=== PATIENT | female | born 1995 | race Caucasian/White ===

== ENCOUNTER 2019-11-14 16:19 | Emergency (ER) | payer OTHER, SELFPAY ==
--- NOTE | ~2019-11-14 | CT_ITS ---
EXAMINATION: CT abdomen pelvis w con EXAM DATE: 11/14/2019 17:05 INDICATION: Right lower quadrant pain. TECHNIQUE: Spiral CT of the abdomen and pelvis was performed following intravenous injection of 100 m L Omnipaque 350. Axial, coronal and sagittal images were reviewed. The dose-length product (DLP) fo r this examination was 400.40 mGy-cm. The exposure was tailored according to patient size (auto mA e xposure control), and iterative reconstruction (ASIR) was used as additional dose reduction technique . There is no prior study for comparison. FINDINGS: The liver, spleen, adrenal glands and pancreas are unremarkable. Gallbladder is unremarkab le. No biliary obstruction. Portal and splenic veins are patent. Kidneys enhance symmetrically. T here is no hydronephrosis. The uterus and ovaries are unremarkable, no adnexal mass. Small amount o f mildly proteinaceous free pelvic fluid, probably sequela from a recently ruptured right ovarian hem orrhagic cyst. The bladder is unremarkable. There is no retroperitoneal or pelvic lymphadenopathy. The appendix is normal. The stomach and small bowel are unremarkable. There is expected amount of c olonic stool. No free intraperitoneal gas. The heart is normal in size. There are no pericardial or pleural effusions. The lung bases are unremarkable. The bones are unremarkable. IMPRESSION: 1. Probable recently ruptured right ovarian hemorrhagic cyst. 2. Normal appendix. Reviewed, dictated and finalized at location A.
[2019-11-14 16:29] VITALS: BP 137/99; PULSE 102; RESP 18; TEMP 37.1; O2SAT 100
--- NOTE | 2019-11-14 16:35 | ED.ABDPAIN ---
HPI - Abdominal Pain General Chief Complaint: Abdominal Pain <Mahin Benavides PA-C - Last Filed: 11/14/19 17:39> Stated Complaint: abd pain <Mahin Benavides PA-C - Last Filed: 11/14/19 17:39> Time Seen by Provider: 11/14/19 16:25 <Mahin Benavides PA-C - Last Filed: 11/14/19 17:39> Source: patient <Mahin Benavides PA-C - Last Filed: 11/14/19 17:39> Mode of arrival: ambulatory <GRIS Patel Last Filed: 11/14/19 17:39> Limitations: no limitations <GRIS Patel Last Filed: 11/14/19 17:39> History of Present Illness HPI narrative: Patient is a 24-year-old female who presents to emergency department for evaluation of right lower quadrant abdominal pain for the last 5 hours does not radiate nothing is made it better or worse took ibuprofen with no improvement went to urgent care referred to emergency department patient denies any vomiting vaginal discharge or urinary symptoms has had some loose stools and nausea associated with her pain denies similar occurrence in the past presents in no distress <Mahin Benavides PA-C - Last Filed: 11/14/19 17:39> Related Data Allergies/Adverse Reactions: Allergies Allergy/AdvReac Type Severity Reaction Status Date / Time No Known Allergies Allergy Verified 11/14/19 16:51 <Mahin Benavides PA-C - Last Filed: 11/14/19 17:39> Review of Systems Review of Systems: All systems reviewed & are unremarkable except as noted in HPI and below <Mahin Benavides PA-C - Last Filed: 11/14/19 17:39> PMFSH Surgical History Surgical History: Surgical History (Updated 11/14/19 @ 16:36 by Mahin Benavides PA-C) H/O exploratory laparotomy <GRIS Patel Last Filed: 11/14/19 17:39> Exam Narrative: Exam Narrative: GENERAL: Well-appearing, well-nourished, and in no acute distress. HEAD: Normocephalic, atraumatic. EYES: PERRLA and EOMI. ENT: Nares clear, no rhinorrhea or epistaxis. Mucous membranes moist. CHEST: Clear to auscultation. No respiratory distress. No wheezes rales or rhonchi HEART: Regular rate and rhythm. No murmur heard. Normal peripheral pulses. ABDOMEN: Soft, tenderness of the right lower quadrant no rebound or guarding, nondistended EXTREMITIES: Normal range of motion. No edema. SKIN: Warm, dry, no rash. NEURO: No focal deficits. Alert and oriented x3. Cranial nerves II through XII grossly intact PSYCH: Normal mood and affect. <Mahin Benavides PA-C - Last Filed: 11/14/19 17:39> Course Course Emergency Course: Patient in the room in no distress aware of case findings treatment plan and diagnosis agreeing to follow-up as directed or to return if symptoms worsen or concerns <GRIS Patel Last Filed: 11/14/19 17:39> Vital Signs Vital signs: Vital Signs Temperature 98.8 F 11/14/19 16:29 Pulse Rate 102 H 11/14/19 16:29 Respiratory Rate 18 11/14/19 16:29 Blood Pressure 137/99 H 11/14/19 16:29 Pulse Oximetry 100 11/14/19 16:29 Temperature 98.8 F 11/14/19 16:29 Pulse Rate 102 H 11/14/19 16:29 Respiratory Rate 18 11/14/19 16:29 Blood Pressure 137/99 H 11/14/19 16:29 Pulse Oximetry 100 11/14/19 16:29 <Mahin Benavides PA-C - Last Filed: 11/14/19 17:39> Vital Signs Temperature 98.8 F 11/14/19 16:29 Pulse Rate 102 H 11/14/19 16:29 Respiratory Rate 18 11/14/19 16:29 Blood Pressure 137/99 H 11/14/19 16:29 Pulse Oximetry 100 11/14/19 16:29 Temperature 98.8 F 11/14/19 16:29 Pulse Rate 102 H 11/14/19 16:29 Respiratory Rate 18 11/14/19 16:29 Blood Pressure 137/99 H 11/14/19 16:29 Pulse Oximetry 100 11/14/19 16:29 <Cheryl Izquierdo MD - Last Filed: 11/14/19 18:01> MDM - Abdominal Pain MDM Narrative Medical decision making narrative: Patient in the room in no distress was hydrated in the emergency department afebrile nontoxic-appearing found to have ovarian cyst is the etiology of her
[2019-11-14 16:42] LABS: Basophils Percent Auto 0.2 % (0.2-1.2); Eosinophils Percent Auto 0.3 % (0-4.4); Hematocrit 39.7 % (37.0-47.0); Hemoglobin 13.6 g/dL (12.0-15.0); Immature Granulocyte Absolute 0.04 K/mm3 (0.00-0.031); Immature Granulocyte Percent A 0.3 % (0-0.5); Lymphocytes Absolute Auto 2.51 K/mm3 (0.9-3.2); Lymphocytes Percent Auto 19.2 % (18.3-44.2); Mean Corpuscular HGB Conc 34.3 g/dl (32-36); Mean Corpuscular Hemoglobin 30.5 pg (26-34); Mean Platelet Volume 9.6 fl (7.4-10.4); Monocytes Absolute Auto 0.8 K/mm3 (0.1-0.6); Monocytes Percent Auto 6.4 % (2.6-8.5); Neutrophils Absolute Auto 9.6 K/mm3 (1.3-6.7); Neutrophils Percent Auto 73.6 % (45.5-73.1); Platelet Count Result 268 k/mm3 (150-375); Red Blood Count 4.46 M/mm3 (4.2-5.4); Red Cell Distribution Width 12.4 % (11.5-14.5)
[2019-11-14 16:46] LABS: Add Urine Microscopic? YES; Appearance Urine Clear (Clear); Bacteria Urine Trace /hpf; Bilirubin Urine 1+ (Negative); Blood Urine 1+ (Negative); Color Urine Yellow (Yellow); Glucose Urine UA Negative (Negative); Ketones Urine 2+ mg/dL (Negative); Leukocyte Esterase Ur Negative LEU/UL (Negative); Mucus Urine Heavy /lpf; Nitrate Urine Negative (Negative); Protein Urine 3+ mg/dL (Negative); Squamous Epithelial Cell Urine Few /hpf (Few)
[2019-11-14 16:47] LABS: Specific Grav Ur 1.038 (1.001-1.035)
[2019-11-14 16:53] LABS: Alanine Aminotransferase 17 U/L (4-35); Albumin Level 4.9 g/dL (3.5-5.1); Alkaline Phosphatase 66 U/L (38-126); Aspartate Amino Transferase 31 U/L (14-36); Bilirubin,Total 0.7 mg/dL (0.2-1.3); Blood Urea Nitrogen 9 mg/dL (7-17); Calcium 9.7 mg/dL (8.4-10.2); Carbon Dioxide 21 mmol/L (22-30); Chloride 106 mmol/L (98-107); Estimated CRCL calculation 104 ml/min; Estimated Glomerular Filt Rate > 60; Glucose 96 mg/dL (65-105); Lipase 55 U/L (23-300); Potassium 3.4 mmol/L (3.4-5.0); Sodium 137 mmol/L (137-145)
[2019-11-14] MEDS: FAMOTIDINE 20 MG/2 ML VIAL IV PUSH (17:21)
[2019-11-14] MEDS: ONDANSETRON INJ 4 MG/2 ML VIAL IV PUSH (17:21)
[2019-11-14] MEDS: SODIUM CHLORIDE 0.9% IV 1,000 ML 999 ML IV CONT (17:22)
[2019-11-14 18:18] VITALS: BP 116/69; PULSE 65; RESP 18; TEMP 36.6; O2SAT 98
== END 2019-11-14 18:25 | disposition home or self-care (01) ==
PROVIDERS: Emergency Medicine Emergency Medical Services; Emergency Provider Emergency Medicine
DX: N83.201 Unspecified ovarian cyst, right side (principal)
CPT/HCPCS: 36415; 74177; 80053; 81001; 81025; 83690; 85025; 96361; 96365; 96375; 99284; J0131; J2405; J7030; Q9967

== ENCOUNTER → 2021-09-15 10:13 | Outpatient (CLI) | payer OTHER, SELFPAY ==
--- NOTE | ~2021-09-15 | US_ITS ---
EXAMINATION: US right upper quadrant EXAM DATE: 09/15/2021 10:35 INDICATION: Nausea and vomiting, abdominal discomfort . TECHNIQUE: Multiple grayscale and Doppler images of the abdomen right upper quadrant were obtained (b y a technologist who performed the scan) and subsequently reviewed. There is no prior study for keena poole. FINDINGS: The pancreatic head and body are normal in appearance. The pancreatic tail is not visualized. The l iver has normal echogenicity and contour. There is 7 mm hyperechoic right liver dome region, likely benign finding suggests hemangioma or adenoma. There is no evidence of intrahepatic biliary duct dil ation. Portal venous flow was seen in the hepatopedal, normal direction and has normal Doppler wavef orm. No right-sided hydronephrosis. Common bile duct measures 2 mm, which is normal. The gallbladder wall is normal in thickness, with ex pected amount of distention. No sonographic evidence of pericholecystic fluid. There is no cholelit hiases. Technologist performing exam reports patient did not demonstrate sonographic Hays's sign. Please note that this sign is less reliable in patients who have received pain medication. IMPRESSION: 1. Subcentimeter hyperechoic liver region likely benign. 2. Unremarkable gallbladder. Reviewed, dictated and finalized at location A. [facility]
== END ==
PROVIDERS: PCP Nurse Practitioner; Visit Provider Nurse Practitioner
DX: R11.2 Nausea with vomiting, unspecified (principal); R10.13 Epigastric pain
CPT/HCPCS: 76705